=== PATIENT | female | born 1995 | race Caucasian/White ===

== ENCOUNTER 2018-02-28 08:23 | Emergency (ER) | payer BC ==
[~2018-02-28] VITALS: Ht 154.9 cm; Wt 49.9 kg
[2018-02-28 08:30] VITALS: BP 118/72
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
[2018-02-28] MEDS ORDERED: Acetaminophen 500mg (ES) tab ORAL ONE (08:45)
[2018-02-28] MEDS ORDERED: IBUPROFEN600 MG ORAL (09:03)
[2018-02-28 09:45] VITALS: BP 115/70
== END 2018-02-28 09:45 | disposition home or self-care (01) ==
LOC: EDBD 08:23 → EMR 08:46
DX: S00.03XA Contusion of scalp, initial encounter (principal); S90.812A Abrasion, left foot, initial encounter; Y04.2XXA Assault by strike against or bumped into by another person, initial encounter; Y92.9 Unspecified place or not applicable
CPT/HCPCS: 99283